=== PATIENT | female | born 1985 | race Caucasian/White ===

== ENCOUNTER 2024-05-16 20:01 | Emergency (ER) | payer OTHER, SELFPAY ==
[2024-05-16 20:05] VITALS: BP 141/97
[2024-05-16 20:22] LABS: % Basophils 1.2 % (0-2); % Immature Granulocytes 0.4 % (0-0.5); % Monocytes 8.9 % (1.7-9.3); % Neutrophils 57.5 % (42.2-75.2); Absolute Basophils 0.2 10^3/uL (0-0.2); Absolute Eosinophils 0.3 10^3/uL (0-0.7); Absolute Immature Granulocytes 0.1 10^3/uL (0-0.05); Absolute Lymphocytes 3.9 10^3/uL (1.2-3.4); Absolute Monocytes 1.2 10^3/uL (0.1-0.6); Absolute Neutrophils 7.5 10^3/uL (1.4-6.5); Hematocrit 37.7 % (37.0-47.0); Mean Corp Hgb Conc. 34.5 g/dL (33.0-37.0); Mean Corpuscular Hgb 30.5 pg (27.0-31.0); Mean Corpuscular Volume 88.5 fL (81.0-99.0); Mean Platelet Volume 9.8 fL (7.4-10.4); Nucleated Red Blood Cells % 0 %; Platelet Count 376 10^3/uL (130-400); Red Blood Cell Count 4.26 10^6/uL (4.20-5.40); Red Cell Dist. Width 13.5 % (11.5-14.5)
[2024-05-16 20:45] LABS: HCG, Serum Qualitative Screen Negative
[2024-05-16 20:46] LABS: ALT (SGPT) 17 U/L (0-35); AST (SGOT) 19 U/L (14-36); Alkaline Phosphatase 67 U/L (38-126); Blood Urea Nitrogen 17 mg/dl (7-17); Calcium 9.1 mg/dl (8.4-10.2); Carbon Dioxide 25 mmol/L (22-30); Chloride 103 mmol/L (98-107); Glucose 126 mg/dl (70-99); Potassium 3.3 mmol/L (3.5-5.1); Sodium 141 mmol/L (135-145); Total Bilirubin < 0.1 mg/dl (0.2-1.3); Total Protein 6.7 g/dl (6.3-8.2); eGFR > 60.00
[2024-05-16 20:50] LABS: Troponin I < 0.012 ng/ml
[2024-05-16 20:53] VITALS: BP 131/103
[2024-05-16 21:00] VITALS: BP 122/93
[2024-05-16 21:36] VITALS: BMI 34.5
--- NOTE | 2024-05-16 21:40 | ED.GENMED ---
History of Present Illness
General
Chief Complaint: Chest Pain
Source: patient and spouse
Exam Limitations: none
Time Seen by Provider: 05/16/24 21:29
Nursing documentation reviewed up to this point in time: agreed with
History of Present Illness
History of Present Illness:
39-year-old female presents emergency room complaining of chest pain that lasted for about 30 seconds at 7:30 PM.
Past History
Past History
ED Past Medical History: Psychiatric (Depression)
ED Past Surgical History: Other (Deviated septum)
Social History
Tobacco: Non-smoker
Alcohol: None
Drug: None
Personal:
Living: with family
Review of Systems
Review of Systems
Allergies reviewed?: Yes
All Other Systems: Not applicable
Constitutional: Reports no symptoms
EENT: Reports no symptoms
Respiratory: Reports no symptoms; Denies trouble breathing
Cardiac: Reports chest pain
ABD/GI: Reports no symptoms
: Reports no symptoms
Musculoskeletal: Reports no symptoms
Skin: Reports no symptoms
Neurological: Reports no symptoms
Endocrine: Reports no symptoms
Hematologic/Lymphatic: Reports no symptoms
Psychiatric: Reports no symptoms
Phy Exam
Physical Exam
Physical Exam:
Physical Exam
General: no apparent distress, not acutely ill
Neck: supple. no meningeal signs. normal posterior pharynx
Heart: s1/s2 regular rate and rhythm, no murmur. equal radial
pulses.
HEENT: Pupils equal round reactive to light, EOMI
Lungs: no acute respiratory distress. clear bilaterally
Abdomen: normal bowel sounds. not tender. no CVAT
Neuro: alert and oriented. no focal neurological deficits cranial nerves II through XII intact
Skin: no rash
Psychiatric: well kept. interactive and cooperative
Extremities: no edema. no calf tenderness. negative homans. good distal pulses
Course
Orders/Labs/Results
Orders:
Orders
05/16/24 20:02
Electrocardiogram (*1) Urgent
Reason for Study: Chest Pain
05/16/24 20:03
EKG- Treatment ONCE
05/16/24 20:10
O2 Therapy [RESP] Urgent
Titrate/Wean O2 to maintain O2 sat greater than (%): 90
Special Instructions: Maintain sats >/=90%
Pulse Ox/spot Check [RESP] Urgent
Quantity: 1
Special Instructions: ON ROOM AIR
05/16/24 20:11
Test Result ONCE
05/16/24 20:14
Complete Blood Count/With Diff Urgent
Comprehensive Metabolic Panel Urgent
HCG, Serum Qualitative Screen Urgent
Comment: Notify provider if positive test present
Troponin I Urgent
05/16/24 21:56
CR Chest - 2 Views Urgent
Comment:
Reason For Exam: chest pain
05/16/24 23:15
Troponin I Urgent
Abnormal Lab Results
05/16/24
20:14
WBC 13.0 H 10^3/uL
(4.8-10.8)
Abs Immat Gran (auto) 0.1 H 10^3/uL
(0-0.05)
Absolute Neuts (auto) 7.5 H 10^3/uL
(1.4-6.5)
Absolute Lymphs (auto) 3.9 H 10^3/uL
(1.2-3.4)
Absolute Monos (auto) 1.2 H 10^3/uL
(0.1-0.6)
Potassium 3.3 L mmol/L
(3.5-5.1)
Glucose 126 H mg/dl
(70-99)
Total Bilirubin < 0.1 L mg/dl
(0.2-1.3)
05/16/24 20:14
05/16/24 20:14
Vital Signs
Initial and Last Documented VS:
Initial Vital Signs
Temp Pulse Resp BP Pulse Ox
98.1 F 99 18 141/97 98
05/16/24 20:05 05/16/24 20:05 05/16/24 20:05 05/16/24 20:05 05/16/24 20:05
Last Documented Vital Signs
Temp Pulse Resp BP Pulse Ox
98.1 F 91 14 122/93 97
05/16/24 20:05 05/16/24 21:30 05/16/24 21:30 05/16/24 21:00 05/16/24 21:36
MDM/Problems Addressed
Differential Diagnosis Includes:
ACS, PE, pancreatitis
MDM/Problems Addressed:
39-year-old female with chest pain, lasting about 30 seconds. Doubt ACS or PE. Repeat troponin pending. If negative, will have patient follow-up with primary care.
*Radiology
Radiology exam reviewed: radiology read reviewed (Chest x-ray no acute findings)
*Pulse Oximetry
Patient hypoxic: no
*EKG
Interpreted by ED Provider?: Yes
EKG Intrepretation Date: 05/16/24
EKG Intrepretation Time: 20:04
Interpretation: normal
Comparison EKG: no comparison EKG present
Heart Rate: 95
Rate: normal
Rhythm: sinus
[place]: normal axis
Interval: normal interval
QRS Pattern: normal QRS
Ischemia: no ischemia
*Crimping Machine Operator Interpretation
Rate: normal
Interpretation: normal
Heart Rate: 94
Rhythm: sinus
*Critical Care Note
Total Time (30-74mins, 75-104mins- exclusive of procedures): Not Applicable
ED Attending Note
-
Portions of this chart may have been created with voice recognition software.� Occasional wrong word or��sound alike� substitutions may have occurred due to the inherent limitations of voice recognition software.
Discharge Plan
Departure
Patient with high blood pressure during this ER visit?: Yes
Condition: Good
Discharge Problem:
Chest pain
Instructions: Chest Pain PCP Follow Up, BLOOD PRESSURE
Referrals:
Kirby Carlos MD [Family Provider] -
Interventions
Interventions:
*Risk Screen - Suicide Last Done: 05/16/24 20:05
*General Assessment Last Done: 05/16/24 21:36
*Neglect/Abuse Screening Last Done: 05/16/24 21:36
ED- Fall Risk Assessment Last Done: 05/16/24 21:36
*ED COVID-19 Vaccine History Last Done: 05/16/24 21:36
ED- Cardiac Assessment Last Done: 05/16/24 21:36
Discharge Date and Time
Print Language: LAO
[2024-05-16 22:00] VITALS: BP 118/86
[2024-05-16 23:23] VITALS: BP 117/88
[2024-05-16 23:30] VITALS: BP 116/91
[2024-05-17] VITALS: BP 116/86
[2024-05-17 00:10] LABS: Troponin I < 0.012 ng/ml
[2024-05-17 00:30] VITALS: BP 121/93
[2024-05-17 01:00] VITALS: BP 117/92
== END 2024-05-17 01:15 | disposition home or self-care (01) ==
LOC: EMR 20:01
PROVIDERS: Emergency Medicine; EMERGENCY PHYSICIAN Emergency Medicine; FAMILY PHYSICIAN Family Medicine
DX: R07.9 Chest pain, unspecified (principal); R03.0 Elevated blood-pressure reading, without diagnosis of hypertension
CPT/HCPCS: 99285; 71046; 80053; 84484; 84703; 85025; 93005